=== PATIENT | female | born 1995 | race Caucasian/White ===

== ENCOUNTER 2024-01-31 01:12 | Emergency (ER) | payer BC, SELFPAY ==
[2024-01-31 01:13] VITALS: BP 138/64; PULSE 106; RESP 15; TEMP 36.9; O2SAT 98; BMI 45.8
--- NOTE | 2024-01-31 01:43 | EDS_ITS ---
HPI History of Present Illness Chief Complaint: Ear Problem Informant: patient and spouse/S.O. Narrative Narrative: Patient is a 28-year-old female with no significant past medical history. She states that she has had 5 to 7 days of nasal congestion sore throat and cough. She reports she was recently diagnosed with COVID. In the last 2 days she has been having increasing right ear pain. She states that the pain has become progressively more intense to the point where she can no longer sleep secondary to it and has concern for infection and therefore comes in for evaluation. PFSH PFSH Medical History no medical history Home Medications ?Medication ?Instructions ?Recorded ?Last Taken ?Type amoxicillin 875 mg-potassium 1 tab PO BID 10 days #20 tabs 01/31/24 Unknown Rx clavulanate 125 mg tablet prednisone 20 mg tablet 40 mg (2 x 20 mg) PO DAILY 7 days 01/31/24 Unknown Rx #14 tabs Allergy/AdvReac Type Severity Reaction Status Date / Time No Known Allergies Allergy Verified 01/31/24 01:15 Social History Smoking Status: Former smoker ROS ROS ED Constitutional Constitutional ED: Denies chills or fever(s) Eyes Eyes: Denies change in vision ENT ENT ED: Reports ear pain bilateral, rhinorrhea and sore throat Cardiovascular Cardiovascular: Denies chest pain Respiratory/Chest Respiratory/Chest: Reports cough; Denies dyspnea Gastrointestinal Gastrointestinal: Denies abdominal pain, diarrhea, nausea or vomiting Genitourinary Genitourinary ED: Denies dysuria Musculoskeletal Musculoskeletal: Reports myalgias Integumentary Denies rash Neurologic Neurologic: Denies headache(s) Hematologic/Lymphatic Hematologic/Lymphatic: Denies easy bleeding or easy bruising Allergic/Immunologic Allergic/Immunologic ED: Denies mouth swelling or tongue swelling EXAM Physical Exam Const Vital Signs: 01/31/24 01:13 Temperature 98.5 F Temperature Source Oral Pulse Rate 106 H Respiratory Rate 15 Blood Pressure 138/64 H Blood Pressure Mean 88 Pulse Ox 98 Oxygen Delivery Method Room Air Positive well nourished, well developed and obese General Appearance ED: well developed; Negative for pallor Nutritional Appearance: obese HEENT HEENT Narrative: The right TM is erythematous and bulging with air-fluid levels and loss of landmarks consistent with otitis media The left TM is retracted and slightly erythematous without obvious secondary infection changes Eyes PERRL and EOMs intact bilaterally Neck supple Resp normal respiratory effort Resp Narrative: Breath sounds are diminished throughout with diffuse expiratory wheeze Cardio regular rate and regular rhythm Extremity normal to inspection Neuro oriented x3, CN's II-XII intact bilaterally and no sensory deficits noted Sensorium / Orientation: alert Motor Exam: strength 5/5 throughout Psych mental status grossly normal Skin no rashes or lesions noted and no wounds General Skin Exam: Negative for jaundice or pallor MDM MDM MDM Narrative Medical decision making narrative: Patient arrived to the ER with stable vitals. She has known COVID and reports increasing ear pain. There is concern for eustachian tube dysfunction versus otitis media versus otitis externa. Physical exam does not show secondary findings to suggest otitis externa. The right TM is erythematous and bulging with air-fluid levels consistent with otitis media. The patient does have wheezing throughout her lung linder consistent with COVID but she does not have tachypnea or accessory muscle use nor she hypoxic and without need for supplemental oxygen or signs of respiratory distress I do not feel there is need for chest x-ray as this would not change treatment options. At this time should be started on Augmentin secondary to the otitis media and given prednisone to help with congestion and eustachian tube dysfunction and pressure buildup. However she does not have signs of systemic infection there is no need for further intervention and she is otherwise safe for discharge History & Record Review Discussion w/independent historian: Patient and Significant other Discharge Plan Triage Chief Complaint: Ear Problem ED Provider: Tim Marques Dx/Rx/DC Orders Clinical Impression: Otitis media, COVID-19 Instructions: Coronavirus Disease 2019 (COVID-19): Caring for Yourself or Others, ED Otitis Media Adult Prescriptions: New prednisone 20 mg tablet 40 mg PO DAILY 7 Days Qty: 14 0RF amoxicillin-pot clavulanate 875-125 mg tablet 1 tab PO BID 10 Days Qty: 20 0RF Referrals: Brian Gomez MD [Med Staff - Active Staff] - Activity Restrictions/Additional Instructions: Please stop the Paxlovid and begin taking the antibiotic and steroid as directed secondary to your ear infection. He will typically take 48 to 72 hours for the medication to take effect. You may continue with Tylenol and or Motrin as needed for pain control and return to the ER should you have any further concern Print Language: Bangladeshi Disposition Disposition: Home, Self Care
[2024-01-31] MEDS: Albuterol Sulfate 8 gm Inhaler (60 puffs) 4 PUFF INHALATION (01:46)
[2024-01-31] MEDS: oxyCODONE 5 MG Tablet 10 MG PO (01:55)
[2024-01-31] MEDS: Amox/Clavulanate 875 MG Tablet PO (01:55)
[2024-01-31] MEDS: dexAMETHasone 10 MG/ML Vial PO.IVFORM (01:56)
== END 2024-01-31 02:11 | disposition home or self-care (01) ==
LOC: ED 02:07
PROVIDERS: Emergency Provider Emergency Medicine; Visit Provider Emergency Medicine
DX: U07.1 COVID-19 (principal); H66.91 Otitis media, unspecified, right ear; E66.9 Obesity, unspecified; Z87.891 Personal history of nicotine dependence
CPT/HCPCS: 99283